=== PATIENT | male | born 1945 ===

== ENCOUNTER 2019-01-22 09:00 | Day surgery (SDC) | payer MEDICARE, OTHER ==
[~2019-01-22] VITALS: Ht 180.3 cm; Wt 101.3 kg
[~2019-01-22 09:00] MED LIST: Lovastatin10 MG PO; Prinivil10 MG PO
--- NOTE | 2019-01-22 10:05 | NUR ---
Ambulatory in Day Surgery History, Chart, Medications and Allergies reviewed before start of procedure. Lungs clear T/O to Auscultation. Patient confirms NPO status and agrees with scheduled surgery. Pre-Op teaching done. Pt verbalizes understanding. Patient States Post-Procedure ride home has been arranged.
--- NOTE | 2019-01-22 11:27 | NUR ---
01/22/19 1127 Mariah Bianchi MEDIPORT REMOVAL ENDED AT 1108. DINESH AREA ALREADY PREPPED WITH BETADINE GEL. DR. ROWE DID EUA BRIEFLY, CASE CONCLUDED, ALL COUNTS CORRECT.
--- NOTE | 2019-01-22 12:48 | NUR ---
Discharge instructions reviewed with patient. Patient verbalizes understanding. Copy given to patient to take home. Discharged via wheelchair to private car for ride home. PATIENT MEETING SISTER IN LAW FOR RIDE HOME.
== END 2019-01-22 23:15 | disposition home or self-care (01) ==
LOC: ORSCMMR 09:00 → ORD 10:30 → ORSCMMR 10:30
PROVIDERS: Surgery
PROC: 0DJD8ZZ Inspection of Lower Intestinal Tract, Via Natural or Artificial Opening Endoscopic (ICD-10-PCS; principal; 2019-01-22 10:45)
PROC: 0JPT0WZ Removal of Totally Implantable Vascular Access Device from Trunk Subcutaneous Tissue and Fascia, Open Approach (ICD-10-PCS; principal; 2019-01-22 10:45)
DX: Z85.048 Personal history of other malignant neoplasm of rectum, rectosigmoid junction, and anus (principal); Z45.2 Encounter for adjustment and management of vascular access device; I10 Essential (primary) hypertension; E78.5 Hyperlipidemia, unspecified; E66.9 Obesity, unspecified; Z68.31 Body mass index [BMI] 31.0-31.9, adult; Z79.899 Other long term (current) drug therapy
CPT/HCPCS: J0690; J2250; J3010; J7120

== ENCOUNTER 2021-03-03 09:08 | Emergency (ER) | payer OTHER, MEDICARE | END 2021-03-03 11:28 | disposition home or self-care (01) | LOC: ER 09:08 | DX: J06.9 Acute upper respiratory infection, unspecified (principal); I10 Essential (primary) hypertension; Z79.899 Other long term (current) drug therapy ==

== ENCOUNTER → 2021-08-27 | Outpatient (CLI) | payer OTHER ==
[~2021-08-27] MED LIST changes: +ATOR20
== END | disposition home or self-care (01) ==
LOC: LAB SHORT 08:11
DX: D04.39 Carcinoma in situ of skin of other parts of face (principal)
CPT/HCPCS: 88305